=== PATIENT | male | born 1985 | race Caucasian/White ===

== ENCOUNTER 2021-04-10 16:19 | Emergency (ER) | payer OTHER ==
[~2021-04-10] VITALS: Ht 182.9 cm; Wt 86.2 kg
[~2021-04-10 16:19] MED LIST: NORCO 5-325 TA1 EACH PO; PERCOCET 5-3251 EACH PO
[2021-04-10 17:36] LABS: ABSOLUTE EOSINOPHILS 0.1 thou/uL (0.0-0.7); ABSOLUTE LYMPHOCYTES 1.4 thou/uL (0.8-5.3); ABSOLUTE MONOCYTES 0.5 thou/uL (0.0-1.2); ABSOLUTE NEUTROPHILS 2.2 thou/uL (1.6-8.1); BASOPHILS 0.5 %; HEMATOCRIT 45.7 % (42.0-52.0); HEMOGLOBIN 15.3 gm/dL (14.0-18.0); LYMPHOCYTES 32.7 %; MCH 30.3 pg (26.0-34.0); MCHC 33.5 g/dL (28.0-37.0); MCV 90.2 fL (80.0-100.0); MONOCYTES 12.5 %; NUCLEATED RBCS 0 /100WBC; PLATELET COUNT* 172 thou/uL (150-400); POLYS 52.3 %; RBC 5.07 mil/uL (4.50-6.00); RDW-CV 12.8 % (10.5-14.5); WBC 4.2 thou/uL (4.0-11.0)
[2021-04-10 17:41] LABS: CALCIUM 8.3 mg/dL (8.5-10.1); CREATININE 1.3 mg/dL (0.6-1.3); POTASSIUM 4.3 mmol/L (3.5-5.1)
[2021-04-10 17:46] LABS: ALBUMIN 3.7 g/dL (3.4-5.0); TOTAL BILIRUBIN 0.3 mg/dL (<0.1-1.0)
[2021-04-10] MEDS ORDERED: AMOXICILLIN500 M1 PO (18:29)
[2021-04-10 18:41] VITALS: BP 130/91
--- NOTE | 2021-04-11 09:58 | EKG ---
[place] [address] ELECTROCARDIOGRAM REPORT Name: THOMAS COLON Room: [facility]#: [id number] Admission: 04/10/21 Attend Phys: Discharge: 04/10/21 Date of : 89 Date of Service: 04/10/211739 Report #: [id number] THIS REPORT FOR: //name// [facility] ED Test Date: 2021-04-10 Test Time: 17:40:56 Pat Name: THOMAS COLON Department: Room: Gender: Book Or Script Editor: : 1985 Requested By: Juanita Sheehan Order Number: [id number] MD: Harshal Munoz Measurements Intervals [place] Rate: 76 P: 65 [place]: 132 QRS: 66 QRSD: 86 T: 32 QT: 348 QTc: 392 Interpretive Statements Sinus rhythm Probable left atrial enlargement Compared to ECG 05/13/2013 22:26:59 No significant changes Electronically Signed On 04-11-2021 9:57:45 USABILITY ARCHITECT by Harshal Munoz [email or web address] <ELECTRONICALLY SIGNED> By: Harshal Munoz MD, [facility] 04/11/21 [id number] Harshal Munoz MD, [facility] /EPI
== END 2021-04-10 18:43 | disposition home or self-care (01) ==
LOC: M.ERS 16:19
PROVIDERS: Student in an Organized Health Care Education/Training Program
DX: J02.9 Acute pharyngitis, unspecified (principal); R05.9 Cough, unspecified; F17.210 Nicotine dependence, cigarettes, uncomplicated